=== PATIENT | female | born 1975 | race American Indian/Alaskan Native ===

== ENCOUNTER 2017-01-02 14:20 | Outpatient (CLI) | payer OTHER ==
--- NOTE | 2017-01-03 08:26 | Mammography Report ---
Bilateral mammogram: No previous studies are available. CAD study utilized. Findings: Bilateral dense breast parenchyma. No mass or microcalcification. Normal axilla. Impression: Essentially negative mammogram examination. Annual followup recommended. BI-RADS CATEGORY: 2 = Benign ACR BI-RADS MAMMOGRAPHIC CODES: 0 = Needs additional imaging evaluation; 1 = Negative; 2 = Benign; 3 = Probably benign; 4 = Suspicious; 5 = Malignant; 6 = Known biopsy-proven malignancy COMMENT: 1. Dense breast tissue, i.e., adenosis, fibrocystic changes, etc., may obscure an underlying neoplasm. 2. Approximately 10% of cancers are not detected with mammography. 3. A negative mammography report should not delay biopsy if a clinically suspicious mass is present. COMMENT: Patient follow-up letters are generated in [employer].
== END 2017-01-02 14:21 | disposition home or self-care (01) ==
LOC: MAMMO 14:20
PROVIDERS: ATTEND Nurse Practitioner Family
DX: Z12.31 Encounter for screening mammogram for malignant neoplasm of breast (principal)
CPT/HCPCS: 77067; G0202

== ENCOUNTER 2019-04-16 10:22 | Outpatient (CLI) | payer OTHER ==
--- NOTE | 2019-04-16 14:50 | Ultrasound Report ---
BILATERAL DIGITAL DIAGNOSTIC MAMMOGRAM WITH CAD 04/16/2019 BILATERAL BREAST ULTRASOUND INDICATION: Right palpable abnormality TECHNIQUE: Digital bilateral mammographic imaging was performed. Spot compression views were obtaine d. This examination was interpreted with the benefit of Computer-Aided Detection (CAD) analysis. COMPARISON: 01/02/2017 FINDINGS: Breast Density: The breasts are extremely dense, which lowers the sensitivity of mammography. There is no evidence of dominant mass, suspicious calcifications or architectural distortion in the r ight breast, including at the area of palpable concern. Dense breast tissue in the upper outer quadra nt improves in appearance with spot compression views, similar to prior. Ultrasound Findings: In the area of palpable concern in the axillary tail region of the right breast, a benign-appearing mildly prominent lymph node is seen with a short axis diameter of 11 mm. This has a thin cortex and large fatty hilum. No other abnormalities are seen on the right In the area of graft leak dense tissue in the upper outer quadrant of the left breast, no abnormaliti es are seen. IMPRESSION: BI-RADS Category 2: Benign. Recommend routine screening mammography in one year A "normal" or negative report should not discourage follow up or biopsy of a clinically significant f inding. A written summary of these findings will be mailed to the patient. The patient will be entered into a mammography reporting system which will generate a reminder letter for the patient's next appointmen t at the appropriate interval. According to the [employer], yearly mammograms are recommended starting at age 40 and continuing as long as a woman is in good health. Breast MRI is recommended for women with an gely roximately 20-25% or greater lifetime risk of breast cancer, including women with a strong family his tory of breast or ovarian cancer and women who have been treated for Hodgkin's disease. Signer Name: Taj Hsieh MD Signed: 04/16/2019 2:46 PM Workstation Name: [id number]
--- NOTE | 2019-04-19 13:20 | Mammography Report ---
BILATERAL DIGITAL DIAGNOSTIC MAMMOGRAM WITH CAD 04/16/2019 BILATERAL BREAST ULTRASOUND INDICATION: Right palpable abnormality TECHNIQUE: Digital bilateral mammographic imaging was performed. Spot compression views were obtained . This examination was interpreted with the benefit of Computer-Aided Detection (CAD) analysis. COMPARISON: 01/02/2017 FINDINGS: Breast Density: The breasts are extremely dense, which lowers the sensitivity of mammography. There is no evidence of dominant mass, suspicious calcifications or architectural distortion in the r ight breast, including at the area of palpable concern. Dense breast tissue in the upper outer quadra nt improves in appearance with spot compression views, similar to prior. Ultrasound Findings: In the area of palpable concern in the axillary tail region of the right breast, a benign-appearing mildly prominent lymph node is seen with a short axis diameter of 11 mm. This has a thin cortex and large fatty hilum. No other abnormalities are seen on the right In the area of graft leak dense tissue in the upper outer quadrant of the left breast, no abnormaliti es are seen. IMPRESSION: BI-RADS Category 2: Benign. Recommend routine screening mammography in one year A "normal" or negative report should not discourage follow up or biopsy of a clinically significant f inding. A written summary of these findings will be mailed to the patient. The patient will be entered into a mammography reporting system which will generate a reminder letter for the patient's next appointmen t at the appropriate interval. According to the [employer], yearly mammograms are recommended starting at age 40 and continuing as long as a woman is in good health. Breast MRI is recommended for women with an appr oximately 20-25% or greater lifetime risk of breast cancer, including women with a strong family hist ory of breast or ovarian cancer and women who have been treated for Hodgkin's disease. Note that this examination was supervised and reported by Dr. Taj Hsieh (see the corresponding [place] report signed by Dr. Hsieh on the same day.) Signer Name: David Burgos MD Signed: 04/19/2019 1:15 PM Workstation Name: [id number]
== END 2019-04-16 10:23 | disposition home or self-care (01) ==
LOC: MAMMO 10:22
PROVIDERS: ATTEND Internal Medicine
DX: N63.10 Unspecified lump in the right breast, unspecified quadrant (principal)
CPT/HCPCS: 77066

== ENCOUNTER 2021-01-29 10:32 | Outpatient (CLI) | payer BC ==
--- NOTE | 2021-01-29 16:07 | Mammography Report ---
DIGITAL SCREENING MAMMOGRAM WITH CAD, 01/29/2021 CLINICAL INFORMATION / INDICATION: Routine screening TECHNIQUE: Digital bilateral 2D mammography was obtained in the craniocaudal and mediolateral obliqu e projections. This examination was interpreted with the benefit of Computer-Aided Detection analysis . COMPARISON: 04/16/2019 FINDINGS: Breast Density: The breasts are extremely dense, which lowers the sensitivity of mammography. No dominant mass, suspicious calcifications, or architectural distortion in either breast. IMPRESSION: No mammographic evidence of malignancy. Follow up recommendation: Routine yearly BI-RADS Category 1: Negative. A "normal" or negative report should not discourage follow up or biopsy of a clinically significant f inding. A written summary of these findings will be mailed to the patient. The patient will be entered into a mammography reporting system which will generate a reminder letter for the patient's next appointmen t at the appropriate interval. The [employer] recommends yearly mammograms starting at age 40 and continuing as l juan as a woman is in good health. Breast MRI is recommended for women with an approximate 20-25% or greater lifetime risk of breast cancer, including women with a strong family history of breast or ova gela cancer or who have been treated for Hodgkin's disease. Signer Name: Taj Hsieh MD Signed: 01/29/2021 4:02 PM Workstation Name: [id number]
== END 2021-01-29 10:33 | disposition home or self-care (01) ==
LOC: MAMMO 10:32
DX: Z12.31 Encounter for screening mammogram for malignant neoplasm of breast (principal)
CPT/HCPCS: 77067

== ENCOUNTER 2022-01-31 09:54 | Outpatient (CLI) | payer BC ==
--- NOTE | 2022-02-04 12:10 | Mammography Report ---
DIGITAL SCREENING MAMMOGRAM WITH CAD, 01/31/2022 CLINICAL INFORMATION / INDICATION: Routine screening mammography. TECHNIQUE: Digital bilateral 2D mammography was obtained in the craniocaudal and mediolateral obliqu e projections. This examination was interpreted with the benefit of Computer-Aided Detection analysis . COMPARISON: 01/29/2021, 04/16/2019 FINDINGS: Breast Density: The breasts are extremely dense, which lowers the sensitivity of mammography. No dominant mass, suspicious calcifications, or architectural distortion in either breast. There has been no significant interval change. IMPRESSION: No mammographic evidence of malignancy. Follow up recommendation: Routine yearly BI-RADS Category 1: NEGATIVE A "normal" or negative report should not discourage follow up or biopsy of a clinically significant f inding. A written summary of these findings will be mailed to the patient. The patient will be entered into a mammography reporting system which will generate a reminder letter for the patient's next appointmen t at the appropriate interval. The [employer] recommends yearly mammograms starting at age 40 and continuing as l juan as a woman is in good health. Breast MRI is recommended for women with an approximate 20-25% or greater lifetime risk of breast cancer, including women with a strong family history of breast or ova gela cancer or who have been treated for Hodgkin's disease. Signer Name: Vasu Ruiz MD Signed: 02/04/2022 12:00 PM Workstation Name: [id number]
== END 2022-01-31 09:55 | disposition home or self-care (01) ==
LOC: MAMMO 09:54
PROVIDERS: ATTEND Nurse Practitioner Women's Health
DX: Z12.31 Encounter for screening mammogram for malignant neoplasm of breast (principal); N64.89 Other specified disorders of breast
CPT/HCPCS: 77067